=== PATIENT | female | born 2000 | race Caucasian/White ===

== ENCOUNTER 2025-01-31 23:37 | Emergency (ER) | payer OTHER, SELFPAY ==
[2025-01-31 23:51] VITALS: BP 140/65; PULSE 89; RESP 16; TEMP 36.6; O2SAT 99; BMI 28.6
--- NOTE | 2025-02-01 01:17 | PC.NURSE ---
pt resting in stretcher, no respiratory distress able to speak in full sentences,currently no hives or facial swelling, pt awaiting to see provider.
[2025-02-01 01:59] VITALS: BP 104/66; PULSE 74; TEMP 36.7; O2SAT 100
--- NOTE | 2025-02-01 03:03 | PC.NURSE ---
pt did not want to stay and be evaluated by provider, recommendation was to stay, pt reported she no longer has the hives, will follow up with primary.
== END 2025-02-01 02:10 | disposition left against medical advice (07) ==
PROVIDERS: Emergency Provider Emergency Medicine; PCP Physician Assistant Medical
DX: L50.9 Urticaria, unspecified (principal); Z53.21 Procedure and treatment not carried out due to patient leaving prior to being seen by health care provider
CPT/HCPCS: 99281; 99284